=== PATIENT | male | born 1970 | race Caucasian/White ===

== ENCOUNTER 2017-04-20 08:28 | Emergency (ER) | payer SELFPAY ==
[~2017-04-20] VITALS: Ht 175.3 cm; Wt 115.0 kg
[~2017-04-20 08:28] MED LIST: AMOXICILLIN500 MG OR; ATIVAN0.5 MG PO; BACTRIM DS1 TAB PO; CARBAMAZEPIN200 MG PO; CELEXA20 MG PO; CIPRO750 MG PO; FLEXERIL OR; FLEXERIL PO; LITHIUM CARB300 MG; LORTAB 10 PO; LORTAB 5/3255 MG PO; LORTAB 7.5 PO; LORTAB5 PO; MUPIROCIN2 % EX; NAPROSYN500 MG OR; NAPROSYN500 MG PO; NO; PENICILLN VK500 MG PO; PERCOCET 5/325M1 TAB PO; RISPERIDONE2 MG PO; SEROQUEL200 MG OR; SEROQUEL300 MG OR; TRAMADOL HCL50 MG PO; TRAZODONE50 MG PO; ULTRAM50 M1 PO; ULTRAM50 MG PO; ZITHROMAX250 MG OR; ZOFRAN ODT4 MG OR; [UNRECOGNIZED DRUG - OTHER]; [UNRECOGNIZED DRUG - REMARK]
[2017-04-20] MEDS ORDERED: MEDDOSEPAK PO (09:43)
[2017-04-20 10:00] VITALS: BP 140/86
== END 2017-04-20 10:05 | disposition home or self-care (01) | DRG 556 ==
LOC: ED 08:28
DX: M79.605 Pain in left leg (principal)